=== PATIENT | male | born 1965 | race Hispanic/Latino ===

== ENCOUNTER 2020-06-05 15:29 | Emergency (ER) | payer SELFPAY ==
[2020-06-05] MEDS ORDERED: ONDANSETRON ODT 4MG TAB ONE (15:53)
[2020-06-05] MEDS ORDERED: ACETAMINOPHEN 500 MG TABLET ONE (15:53)
== END 2020-06-05 16:57 | disposition home or self-care (01) ==
LOC: EDH 15:29
DX: S06.0X0A Concussion without loss of consciousness, initial encounter (principal); E11.9 Type 2 diabetes mellitus without complications; I10 Essential (primary) hypertension; X58.XXXA Exposure to other specified factors, initial encounter; Y93.89 Activity, other specified; Y92.512 Supermarket, store or market as the place of occurrence of the external cause; Y99.8 Other external cause status
CPT/HCPCS: 70450; 72125